=== PATIENT | male | born 1980 | race Caucasian/White ===

== ENCOUNTER 2022-02-09 14:15 | Emergency (ER) | payer BC, SELFPAY ==
[2022-02-09 14:22] VITALS: BP 136/98; PULSE 65; RESP 16; TEMP 37.1; O2SAT 100
--- NOTE | 2022-02-09 14:24 | ED.EAR ---
HPI - Ear Problem General Chief complaint: Ear Stated complaint: WATER IN EAR Related Data Home Medications Medication Instructions Recorded Confirmed Unable to Obtain Home Medications 02/09/22 02/09/22 Allergies Allergy/AdvReac Type Severity Reaction Status Date / Time No Known Allergies Allergy Verified 02/09/22 14:21 Discharge Plan Discharge Prescriptions: No Action Unable to Obtain Home Medications Follow-up/Referrals: PHYSICIAN NOT ON STAFF,NONSTAFF [Primary Care Provider] -
--- NOTE | 2022-02-09 14:24 | ED.EAR ---
HPI - Ear Problem General Chief complaint: Ear Stated complaint: WATER IN EAR Time Seen by Provider: 02/09/22 14:25 Source: patient Mode of arrival: ambulatory Limitations: no limitations History of Present Illness HPI Narrative: Igor is a 41-year-old male patient presenting to the clinic today with complaints of left ear pressure/water in ear since Monday. He states that he has had decreased hearing in his left ear. He denies any fever or chills. Related Data Allergies Allergy/AdvReac Type Severity Reaction Status Date / Time No Known Allergies Allergy Verified 02/09/22 14:21 Review of Systems Review of Systems: Pertinent positives per HPI. Patient denies any fever, chills, rash, headache, visual changes, dizziness, cough, runny nose, sore throat, shortness of breath, chest pain, palpitations, nausea, vomiting, diarrhea, constipation, abdominal pain, or any urinary issues. PMFSH Comments At the time of my signature, I reviewed and agree with the nursing past medical, surgical, social, and family history. There is no relevant family history pertinent to the patient complaint. Exam Narrative: General: Well-developed, well nourished, in no apparent distress Head: Normocephalic, atraumatic Eyes: Pupils equally round and reactive to light bilaterally, EOM intact, sclera and conjunctive clear, no discharge, lids normal Ears: Right TMs intact and clear, left TM intact, bulging, red, bilateral ear canals impacted with cerumen, ear lavage performed, left ear canal swollen and red, grossly hearing normal. Nose: Nares patent, no discharge, no inflammation, no sinus tenderness. Mouth: Oropharynx without lesions or masses, good dentition, MMM. Neck: Supple, trachea midline, no enlargement of anterior or posterior cervical nodes, no thyroid masses or goiter palpable. Cardio: Regular rate and rhythm, s1 and s2 normal, no murmur appreciated. Resp: Clear to auscultation bilaterally anteriorly and posteriorly, no rhonchi, rales, wheezing or rubs Course Course Emergency Course: Portions of this record may have been created with voice recognition software. Level of Care: Express Care Visit Vital Signs Vital signs: Vital Signs Temperature 37.1 C 02/09/22 14:22 Pulse Rate 65 02/09/22 14:22 Respiratory Rate 16 02/09/22 14:22 Blood Pressure 136/98 H 02/09/22 14:22 Pulse Oximetry 100 02/09/22 14:22 Oxygen Delivery Room Air 02/09/22 14:22 Temperature 37.1 C 02/09/22 14:22 Pulse Rate 65 02/09/22 14:22 Respiratory Rate 16 02/09/22 14:22 Blood Pressure 136/98 H 02/09/22 14:22 Pulse Oximetry 100 02/09/22 14:22 Oxygen Delivery Room Air 02/09/22 14:22 Vital signs reviewed Medical Decision Making MDM Narrative Medical decision making narrative: At the time of visit patient is resting comfortably on the exam table. Bilateral ear irrigation performed successfully without any complications. Patient has left otitis media and externa. Prescription for amoxicillin and ofloxacin eardrops were prescribed, discussed supportive measures and patient voiced understanding of discharge instructions Differential Diagnosis Differential Diagnosis: Bilateral ear cerumen impaction, otitis media, otitis externa, serous otitis, otalgia Vital Signs Vital Signs: Vital Signs Temperature 37.1 C 02/09/22 14:22 Pulse Rate 65 02/09/22 14:22 Respiratory Rate 16 02/09/22 14:22 Blood Pressure 136/98 H 02/09/22 14:22 Pulse Oximetry 100 02/09/22 14:22 Oxygen Delivery Room Air 02/09/22 14:22 Temperature 37.1 C 02/09/22 14:22 Pulse Rate 65 02/09/22 14:22 Respiratory Rate 16 02/09/22 14:22 Blood Pressure 136/98 H 02/09/22 14:22 Pulse Oximetry 100 02/09/22 14:22 Oxygen Delivery Room Air 02/09/22 14:22 Discharge Plan Discharge Clinical Impression: Bilateral impacted cerumen Otitis externa Qualifiers: Otitis externa type: diffuse Chronicity: acute Laterality: l
== END 2022-02-09 14:58 | disposition home or self-care (01) ==
PROVIDERS: Emergency Provider Nurse Practitioner Family
DX: H60.312 Diffuse otitis externa, left ear (principal); H66.002 Acute suppurative otitis media without spontaneous rupture of ear drum, left ear; H61.23 Impacted cerumen, bilateral
CPT/HCPCS: 69209; 99213; G0463

== ENCOUNTER 2022-06-15 10:10 | Emergency (ER) | payer BC, SELFPAY ==
[2022-06-15 11:13] VITALS: BP 147/82; PULSE 64; RESP 16; TEMP 37.2; O2SAT 100
--- NOTE | 2022-06-15 12:09 | ED.URI ---
HPI - URI/Sore Throat General Chief Complaint: Upper Respiratory Infection Stated Complaint: SORE THROAT/SINUS Time Seen by Provider: 06/15/22 12:04 Source: patient Mode of arrival: ambulatory Limitations: no limitations History of Present Illness HPI Narrative: Patient presents today complaining of 5 day history of sore throat with mild nasal congestion. Denies any additional symptoms to include fever. States symptoms have worsened over last 2 nights and is significantly worse at night than during the day. Denies any sick contacts. Rates his pain 6/10 at night with swallowing. He has been taking NyQuil without relief. Related Data Home Medications Medication Instructions Recorded Confirmed No Home Medications 06/15/22 06/15/22 Allergies Allergy/AdvReac Type Severity Reaction Status Date / Time No Known Allergies Allergy Verified 06/15/22 11:59 Review of Systems Review of Systems: CONSTITUTIONAL: Denies body aches, fever, chills, or sweats. EYES: Denies visual changes, redness, or discharge. ENT: Denies rhinorrhea, or otalgia.+ sore throat, congestion CARDIOVASCULAR: Denies chest pain, palpitations, or edema. RESPIRATORY: Denies cough or dyspnea. GASTROINTESTINAL: Denies abdominal pain, nausea, vomiting, or diarrhea. GENITOURINARY: Denies dysuria or hematuria. SKIN: Denies rash, itching, or wounds. MUSCULOSKELETAL: Denies back pain, joint pain, or myalgia. NEUROLOGIC: Denies headache, numbness, tingling, or weakness. PSYCH: Denies depression or anxiety. PMFSH Comments At time of signature, I have reviewed and agree with nursing past medical, surgical, social and family history unless otherwise noted. Please see nursing chart for further information. There is no relevant family history pertinent to the presenting complaint Exam Narrative: GENERAL: Well-appearing, well-nourished, and in no acute distress. HEAD: Normocephalic, atraumatic. EYES: EOMI. No redness or drainage. Conjunctivae normal. ENT: Mucous membranes pink and moist. Nares clear. No rhinorrhea. TMs normal bilaterally. Throat erythematous with mild edema. Slight white exudate right tonsil. Tonsils 1-2+. Uvula midline. NECK: Normal AROM. Supple. No lymphadenopathy. CHEST: No respiratory distress. Clear to auscultation. HEART: Regular rate and rhythm. No murmur appreciated. Normal peripheral pulses. EXTREMITIES: Normal range of motion. No edema. SKIN: Warm, dry, no rash. Capillary refill normal. Normal skin turgor. NEURO: No focal deficits. Alert and oriented x3. Gait steady. PSYCH: Normal affect. No signs of depression or anxiety. Course Course Level of Care: Express Care Visit Vital Signs Vital signs: Vital Signs Temperature 99 F 06/15/22 11:13 Pulse Rate 64 06/15/22 11:13 Respiratory Rate 16 06/15/22 11:13 Blood Pressure 147/82 H 06/15/22 11:13 Pulse Oximetry 100 06/15/22 11:13 Oxygen Delivery Room Air 06/15/22 11:13 Temperature 99 F 06/15/22 11:13 Pulse Rate 64 06/15/22 11:13 Respiratory Rate 16 06/15/22 11:13 Blood Pressure 147/82 H 06/15/22 11:13 Pulse Oximetry 100 06/15/22 11:13 Oxygen Delivery Room Air 06/15/22 11:13 Reviewed. Pt has been instructed to follow up with his PCP regarding his elevated blood pressure today. MDM - URI/Sore Throat Differential Diagnosis Differential diagnosis: Likely upper respiratory infection, viral infection, influenza, pharyngitis and other (Strep throat) Lab Data Attestation: I reviewed the patient's lab results. Lab results narrative: Influenza negative Labs: Strep Screen Presumptive Negative *(Reference Range: Negative)* Strep Screen Presumptive Negative *(Reference Range: Negative)* Critical Care Time Critical Care Time Critical Care Time: No Discharge Plan Discharge Clinical Impression: Pharyngitis Qualifiers: Ph
== END 2022-06-15 12:18 | disposition home or self-care (01) ==
PROVIDERS: Emergency Provider Nurse Practitioner
DX: J02.9 Acute pharyngitis, unspecified (principal)
CPT/HCPCS: 87081; 87804; 87880; 99213; G0463

== ENCOUNTER 2024-03-04 12:05 | Emergency (ER) | payer BC, SELFPAY ==
[2024-03-04 12:22] VITALS: BP 157/90; PULSE 100; RESP 16; TEMP 37.2; O2SAT 100
--- NOTE | 2024-03-04 12:29 | ED.UPPEXIN ---
HPI - Extremity Injury (Upper) General Chief Complaint: Extremity Injury, Upper Stated Complaint: Left Shoulder Pain Time Seen by Provider: 03/04/24 12:20 Source: patient Mode of arrival: ambulatory Limitations: no limitations History of Present Illness HPI narrative: Igor is a 43-year-old male patient presenting to the clinic today with complaints of left-sided shoulder pain. He reports that he was swimming the other day and developed pain to the anterior shoulder with some pain radiating down the posterior shoulder. He states that he has had some shoulder issues for the past couple months however this is really exacerbated the shoulder pain. Related Data Allergies Allergy/AdvReac Type Severity Reaction Status Date / Time No Known Allergies Allergy Verified 06/15/22 11:59 Review of Systems Review of Systems: Pertinent positives per HPI. Patient denies any fever, chills, rash, headache, visual changes, dizziness, cough, runny nose, sore throat, shortness of breath, chest pain, palpitations, nausea, vomiting, diarrhea, constipation, abdominal pain, or any urinary issues. PMFSH Comments At the time of my signature, I reviewed and agree with the nursing past medical, surgical, social, and family history. There is no relevant family history pertinent to the patient complaint. Exam Narrative: General: Well-developed, well nourished, in no apparent distress Head: Normocephalic, atraumatic. Cardio: Regular rate and rhythm, s1 and s2 normal, no murmur appreciated. Resp: Clear to auscultation bilaterally, no rhonchi, rales, wheezing or rubs. Musculoskeletal: No deformity, non-tender to palpation, pain reproducible with empty can testing and with raising his arm above his head, grossly normal range of motion, muscle strength strong and equal, peripheral pulse strong, no edema, no cyanosis, normal gait and station Course Course Emergency Course: Portions of this record may have been created with voice recognition software. Level of Care: Express Care Visit Vital Signs Vital signs: Vital Signs Temperature 37.2 C 03/04/24 12:22 Pulse Rate 100 03/04/24 12:22 Respiratory Rate 16 03/04/24 12:22 Blood Pressure 157/90 H 03/04/24 12:22 Pulse Oximetry 100 03/04/24 12:22 Temperature 37.2 C 03/04/24 12:22 Pulse Rate 100 03/04/24 12:22 Respiratory Rate 16 08/12/24 12:22 Blood Pressure 157/90 H 03/04/24 12:22 Pulse Oximetry 100 03/04/24 12:22 Vital signs reviewed MDM - Extremity Injury (Upper) MDM Narrative Medical decision making narrative: At the time of visit patient is resting comfortably on the exam table. Patient appears to be nontoxic. Plan: I suspect patient has tendonitis of the rotator cuff. Rx for medrol dose pack sent to the pharmacy. Supportive measures were discussed with the patient and they voiced understanding discharge instructions and agrees to treatment plan. Return precautions reviewed Differential Diagnosis Differential diagnosis: Likely dislocation of shoulder and other (Shoulder strain, shoulder tendinitis, rotator cuff tear, AC separation, osteoarthritis, humeral fracture, clavicle fracture) Discharge Plan Discharge Clinical Impression: Left shoulder tendonitis Patient Disposition: Home, Self-Care Condition: Stable Instructions: Antibiotic Form, Tendinitis (ED) Additional Instructions: Take any prescription medication only as prescribed-Medrol Dosepak May use heat or ice to the affected area May use blue emu, lidocaine patches, or asper cream to affected area- do not apply heat or ice directly over cream- can cause burn. Complete appropriate shoulder stretches Follow up with your PCP in 3-5 days if symptom persist. Prescriptions: New methylprednisolone [Medrol (Stephen)] 4 mg tablets,dose pack See Rx Instructions PO .COMPLEX Qty: 21 0RF Rx Instructions: orally per package directions Follow-up/Referrals: PHYSICIAN,
== END 2024-03-04 12:38 | disposition home or self-care (01) ==
PROVIDERS: Emergency Provider Nurse Practitioner Family
DX: M77.8 Other enthesopathies, not elsewhere classified (principal); I10 Essential (primary) hypertension
CPT/HCPCS: 99213; G0463

== ENCOUNTER 2025-01-01 10:10 | Emergency (ER) | payer OTHER, SELFPAY ==
--- NOTE | 2025-01-01 10:16 | ED_ITS ---
HPI - Ear Problem General Chief complaint: Ear Stated complaint: WATER IN EAR Source: patient Mode of arrival: ambulatory Limitations: no limitations History of Present Illness HPI Narrative: patient is a 44-year-old male presenting with complaint of muffled hearing to left ear. Reports history of similar due to ear wax buildup. Treatment initiated prior to attempt at irrigation of the left ear. He denies any pain. Notation of complaints. Related Data Home Medications ?Medication ?Instructions ?Recorded ?Confirmed ?Last Taken ?Type lisinopril 10 mg tablet mg 01/01/25 Unknown History Allergies Allergy/AdvReac Type Severity Reaction Status Date / Time No Known Allergies Allergy Verified 01/01/25 10:20 Review of Systems Review of Systems: CONSTITUTIONAL: Denies body aches, fever, chills, or sweats. EYES: Denies visual changes, redness, or discharge. ENT: Denies rhinorrhea, congestion, sore throat CARDIOVASCULAR: Denies chest pain, palpitations, or edema. RESPIRATORY: Denies cough or dyspnea. GASTROINTESTINAL: Denies abdominal pain, nausea, vomiting, or diarrhea. GENITOURINARY: Denies dysuria or hematuria. SKIN: Denies rash, itching, or wounds. MUSCULOSKELETAL: Denies back pain, joint pain, or myalgia. NEUROLOGIC: Denies headache, numbness, tingling, or weakness. PSYCH: Denies depression or anxiety. All systems reviewed & are unremarkable except as noted in HPI and below Exam Narrative: GENERAL: Well-appearing, well-nourished, and in no acute distress. HEAD: Normocephalic, atraumatic. EYES: EOMI. No redness or drainage. Conjunctivae normal. ENT: Mucous membranes pink and moist. Nares clear. No rhinorrhea. TMs normal bilaterally. Throat normal. Uvula midline. no mastoid tenderness. NECK: Normal AROM. Supple. No lymphadenopathy. CHEST: No respiratory distress. HEART: Regular rate MUSCULOSKELETAL: No bony tenderness. EXTREMITIES: Normal range of motion. SKIN: Warm, dry, no rash. Capillary refill normal. Normal skin turgor. NEURO: No focal deficits. Alert and oriented x3. Gait steady. PSYCH: Normal affect. No signs of depression or anxiety. HENMT: Ears: other ( Cerumen impaction bilaterally.) Course Course Level of Care: Express Care Visit Vital Signs Vital signs: Vital Signs Temperature 97.8 F 01/01/25 10:19 Pulse Rate 62 01/01/25 10:19 Respiratory Rate 16 01/01/25 10:19 Blood Pressure 119/88 01/01/25 10:19 Pulse Oximetry 100 01/01/25 10:19 Temperature 97.8 F 01/01/25 10:19 Pulse Rate 62 01/01/25 10:19 Respiratory Rate 16 01/01/25 10:19 Blood Pressure 119/88 01/01/25 10:19 Pulse Oximetry 100 01/01/25 10:19 Medical Decision Making MDM Narrative Medical decision making narrative: Please be advised this is a medical document. It is intended for [id number] communication. It is written in medical language and may contain unfamiliar abbreviations or verbiage. Medical documents are intended to carry relevant information, facts as evident, and the clinical opinion of the practitioner at the time of the encounter. This dictation may have been done utilizing a voice recognition system. Attempts have been made to correct errors. However, there may be uncorrected grammatical, spelling, and recognition errors present. Vital Signs Vital Signs: Vital Signs Temperature 97.8 F 01/01/25 10:19 Pulse Rate 62 01/01/25 10:19 Respiratory Rate 16 01/01/25 10:19 Blood Pressure 119/88 01/01/25 10:19 Pulse Oximetry 100 01/01/25 10:19 Temperature 97.8 F 01/01/25 10:19 Pulse Rate 62 01/01/25 10:19 Respiratory Rate 16 01/01/25 10:19 Blood Pressure 119/88 01/01/25 10:19 Pulse Oximetry 100 01/01/25 10:19 Discharge Plan Discharge Clinical Impression: Bilateral impacted cerumen Patient Disposition: Home Condition: Stable Instructions: Earache (ED) Additional Instructions: Go straight to ER should your symptoms become worse or should any new symptoms develop Patient Language: Salvadorean Prescriptions: No Action lisinopril 10 mg tablet Follow-up/Referrals: ,Joey [Other] Time of Disposition: 10:43
[2025-01-01 10:19] VITALS: BP 119/88; PULSE 62; RESP 16; TEMP 36.6; O2SAT 100
== END 2025-01-01 10:49 | disposition home or self-care (01) ==
PROVIDERS: Emergency Provider Registered Nurse
DX: H61.23 Impacted cerumen, bilateral (principal)
CPT/HCPCS: 69209; 99212; A9270; G0463